=== PATIENT | female | born 1990 | race Caucasian/White ===

== ENCOUNTER 2021-11-30 10:51 | Emergency (ER) | payer MEDICAID ==
[~2021-11-30] VITALS: Ht 170.2 cm; Wt 79.8 kg
[2021-11-30 11:01] VITALS: BP 169/97
--- NOTE | 2021-11-30 11:16 | NUR ---
TO ER BED 3
--- NOTE | 2021-11-30 11:25 | NUR ---
31 Y/O F BIB [employer]FF FOR MEDICAL CLEARANCE AND PT C/O MAURER X 3DAYS, AND LIGHT PINK VAGINAL BLEEDING TODAY, HX OF ON 11/08/21, NO PAIN AT THIS TIME. PT STILL HAS STERI-STRIP DRESSING AT SITE, SITE IS CLEAN, DRY AND HEALING NO S/S OF INFECTION NKDA PMH: METH USE
--- NOTE | 2021-11-30 11:28 | NUR ---
DR HOUSTON AT BEDSIDE FOR MSE
[2021-11-30 12:07] VITALS: BP 169/97
--- NOTE | 2021-11-30 12:07 | NUR ---
Patient discharged with v/s stable. Written and verbal after care instructions given and explained. Patient verbalized understanding. Ambulatory with steady gait. All questions addressed prior to discharge. Advised to follow up with PMD.
== END 2021-11-30 12:07 | disposition home or self-care (01) ==
LOC: MED 10:51
DX: T81.89XA Other complications of procedures, not elsewhere classified, initial encounter (principal); G44.209 Tension-type headache, unspecified, not intractable; F15.10 Other stimulant abuse, uncomplicated
CPT/HCPCS: 99281